=== PATIENT | female | born 2000 | race Caucasian/White ===

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

== ENCOUNTER 2020-06-08 16:41 | Emergency (ER) | payer OTHER ==
[~2020-06-08] VITALS: Ht 154.9 cm; Wt 65.3 kg
[2020-06-08 16:47] VITALS: Ht 154.9 cm; Wt 65.3 kg
[2020-06-08 17:16] LABS: BASOPHIL % 0.5 % (0-2); PLATELET COUNT 300 x10^3mcL (130-400); RED CELL DISTRIBUTION WIDTH 13.1 % (11.5-14.5)
[2020-06-08 17:29] LABS: CALCIUM 9.1 mg/dL (8.5-10.1); CARBON DIOXIDE 23.8 mmol/L (21-32); CHLORIDE SERUM 102 mmol/L (98-107); CREATININE SERUM 0.5 mg/dL (0.6-1.0); GFR1 > 60 mL/min; GLUCOSE SERUM 98 mg/dL (74-106); POTASSIUM SERUM 3.4 mmol/L (3.5-5.1); SODIUM SERUM 136 mmol/L (136-145)
[2020-06-08 17:33] LABS: ALKALINE PHOSPHATASE 77 U/L (46-116); ALT/SGPT 17 U/L (14-59); AST/SGOT 17 U/L (15-37); BILIRUBIN TOTAL 0.25 mg/dL (0.20-1.00); LIPASE 167 IU/L (73-393); TOTAL PROTEIN, SERUM 7.6 g/dL (6.4-8.2)
[2020-06-08 17:34] LABS: ALBUMIN 3.1 g/dL (3.4-5.0)
[2020-06-08 19:22] VITALS: BP 94/48
== END 2020-06-08 19:22 | disposition home or self-care (01) ==
LOC: ED 16:41
PROVIDERS: Emergency Medicine
DX: O99.611 Diseases of the digestive system complicating pregnancy, first trimester (principal); K29.70 Gastritis, unspecified, without bleeding; Z3A.14 14 weeks gestation of pregnancy
CPT/HCPCS: J2270; J2765; Q0092; Q0162